=== PATIENT | male | born 1975 | race Caucasian/White ===

== ENCOUNTER 2022-11-24 08:30 | Outpatient (CLI) | payer BC, SELFPAY | END 2022-11-24 08:31 | disposition home or self-care (01) | PROVIDERS: PCP Emergency Medicine; Visit Provider Emergency Medicine | DX: I10 Essential (primary) hypertension (principal); R73.03 Prediabetes; Z13.6 Encounter for screening for cardiovascular disorders | CPT/HCPCS: 80061; 80076 ==

== ENCOUNTER 2022-12-08 08:33 | Outpatient (CLI) | payer BC, SELFPAY | END 2022-12-08 08:34 | disposition home or self-care (01) | LOC: LKVREF 08:35 | PROVIDERS: PCP Emergency Medicine; Visit Provider Emergency Medicine | DX: I10 Essential (primary) hypertension (principal); E78.5 Hyperlipidemia, unspecified; E11.9 Type 2 diabetes mellitus without complications; R73.03 Prediabetes | CPT/HCPCS: 80048 ==

== ENCOUNTER 2022-12-24 07:49 | Outpatient (CLI) | payer BC, SELFPAY ==
[2022-12-24] MEDS: PERFLUTREN LIPID MICROSPHERES 2 ML VIAL IV (09:10)
--- NOTE | 2022-12-24 09:28 | ED.NURSE ---
had assisted with echo due to the need of the use of definity. iv was placed in the left hand with a #20 j. lot [id number], exp 01/12. had total of 4 ml used. iv was then dc'd with catheter intact.
== END 2022-12-24 07:50 | disposition home or self-care (01) ==
LOC: RAD 07:49
PROVIDERS: PCP Emergency Medicine; Visit Provider Emergency Medicine
DX: R06.02 Shortness of breath (principal); I35.1 Nonrheumatic aortic (valve) insufficiency; I34.0 Nonrheumatic mitral (valve) insufficiency
CPT/HCPCS: 93306; Q9957

== ENCOUNTER 2023-02-11 08:29 | Outpatient (CLI) | payer BC, SELFPAY ==
--- NOTE | 2023-02-11 08:17 | W.ANESCHARGE ---
Anesthesia Charges Start Date/Time Anesthesia Start Date: 02/11/23 Anesthesia Start Time: 09:15 Stop Date/Time Anesthesia Stop Date: 02/11/23 Anesthesia Stop Time: 09:40
--- NOTE | 2023-02-11 09:43 | W.ANESCHARGE ---
Anesthesia Charges Start Date/Time Anesthesia Start Date: 02/11/23 Anesthesia Start Time: 09:15 Stop Date/Time Anesthesia Stop Date: 02/11/23 Anesthesia Stop Time: 09:40
== END 2023-02-11 08:30 | disposition home or self-care (01) ==
PROVIDERS: PCP Emergency Medicine; Visit Provider Internal Medicine
DX: Z12.11 Encounter for screening for malignant neoplasm of colon (principal)
CPT/HCPCS: 00811; 00812; 45378; J2704

== ENCOUNTER 2024-06-15 08:15 | Outpatient (CLI) | payer BC, SELFPAY | END 2024-06-15 08:16 | disposition home or self-care (01) | LOC: NFLDREF 14:50 | PROVIDERS: PCP Emergency Medicine; Referring Provider Emergency Medicine; Visit Provider Emergency Medicine | DX: E78.5 Hyperlipidemia, unspecified (principal); E11.9 Type 2 diabetes mellitus without complications; R73.03 Prediabetes; I10 Essential (primary) hypertension; Z12.5 Encounter for screening for malignant neoplasm of prostate | CPT/HCPCS: 80048; 80061; 82043; 82570; G0103 ==

== ENCOUNTER 2024-10-01 08:19 | Outpatient (CLI) | payer BC, SELFPAY | END 2024-10-01 08:20 | disposition home or self-care (01) | LOC: NFLDREF 10-05 02:52 | PROVIDERS: PCP Emergency Medicine; Referring Provider Emergency Medicine; Visit Provider Emergency Medicine | DX: E78.5 Hyperlipidemia, unspecified (principal) | CPT/HCPCS: 80061 ==

== ENCOUNTER 2025-02-04 08:18 | Outpatient (CLI) | payer BC, SELFPAY | END 2025-02-04 08:19 | disposition home or self-care (01) | LOC: NFLDREF 02-08 01:38 | PROVIDERS: PCP Emergency Medicine; Visit Provider Emergency Medicine | DX: E78.2 Mixed hyperlipidemia (principal) | CPT/HCPCS: 80061 ==